=== PATIENT | female | born 1960 | race Caucasian/White ===

== ENCOUNTER → 2021-07-28 17:16 | Outpatient (CLI) | payer OTHER, MEDICAID, SELFPAY ==
--- NOTE | 2021-07-28 | DI.MRI.S_ITS ---
PROCEDURE: MR LUMBAR SPINE WO CON INDICATIONS: STENOISIS OF NEURAL CANAL TECHNIQUE: Noncontrast sagittal T1 spin echo and T2 fast echo, sagittal STIR, axial T1 and T2 fast spin echo through the lumbar spine. In cases with scoliosis, additional coronal T2 fast spin echo may be performed. COMPARISON: None. FINDINGS: Normal lumbar vertebral body height, alignment, and signal intensity. No suspicious focal marrow signal abnormality. Mild discogenic marrow edema at the posterior-superior L5 endplate (Modic type 1 degenerative change). Normal position and appearance of the conus. Prevertebral and paraspinous soft tissues demonstrate no acute finding. T12-L1: No spinal canal or neural foraminal stenosis. L1-L2: No spinal canal or neural foraminal stenosis. L2-L3: No spinal canal or neural foraminal stenosis. L3-L4: Disc bulge flattens the ventral thecal sac with mild displacement of the descending L4 nerve roots in both subarticular zones. Mild bilateral neural foraminal stenosis due to foraminal components of the disc bulge. L4-L5: Severe spinal canal stenosis due to a combination of diffuse disc bulge and a superimposed extrusion spanning the full lateral with of the spinal canal. The total volume of extruded disc material is at least 1.0 cm AP, 3.2 cm transverse, and 1.5 cm craniocaudal. There is mild migration of disc material below the level of the disc space. Extruded disc material significantly displaces numerous traversing nerve roots including the bilateral L5 nerve roots within both subarticular zones. There is complete effacement of CSF within the thecal sac. Laxity of the nerve roots above and below this level suggest compression. Foraminal components of the disc bulge and facet hypertrophy combine to produce moderate left and mild right neural foraminal stenosis. L5-S1: No spinal canal or neural foraminal stenosis. IMPRESSION: Severe spinal canal stenosis at L4-L5 with probable nerve root compression and impingement. Dictated by: Mo Damico M.D. on 07/29/2021 at 12:24 Approved by: Mo Damico M.D. on 07/29/2021 at 12:27
== END ==
PROVIDERS: PCP Internal Medicine; Referring Provider Internal Medicine; Visit Provider Internal Medicine
DX: M99.33 Osseous stenosis of neural canal of lumbar region (principal); M48.061 Spinal stenosis, lumbar region without neurogenic claudication
CPT/HCPCS: 72148

== ENCOUNTER 2022-04-27 11:52 | Emergency (ER) | payer OTHER, MEDICAID, SELFPAY ==
[2022-04-27 12:03] VITALS: BP 170/77; PULSE 85; RESP 14; TEMP 36.5; O2SAT 99; BMI 21.9
[2022-04-27 12:43] LABS: Add Manual Diff / Slide Review NO; Basophils Absolute Auto 100 /uL (0-100); Basophils Percent Auto 0.6 % (0-2); Eosinophils Absolute Auto 100 /uL (0-450); Eosinophils Percent Auto 0.7 % (2-4); Hematocrit 44.2 % (36-46); Hemoglobin 14.7 g/dL (12.0-16.0); Lymphocytes Absolute Auto 1900 /uL (1100-4500); Lymphocytes Percent Auto 16.2 % (25-40); Mean Corpuscular HGB Conc 33.3 % (30-36); Monocytes Absolute Auto 1000 /uL (0-900); Neutrophils Absolute Auto 8400 /uL (1500-7000); Neutrophils Percent Auto 73.5 % (50-75); Platelet Count 309 X10^3/uL (150-400); Red Blood Cell Count 4.92 X10^6/uL (4.0-5.2); Red Cell Distribution Width 13.5 % (11.6-14.8); White Blood Cell Count 11.5 X10^3/uL (4.5-11.0)
--- NOTE | 2022-04-27 12:46 | ED_ITS ---
HPI - Abdominal Pain General Chief Complaint: Abdominal Pain Stated Complaint: xtry of diverticulosis not getting better 10 days Time Seen by Provider: 04/27/22 12:31 Source: patient Mode of arrival: Ambulatory History of Present Illness HPI narrative: Patient is a 62-year-old female who presents to the ED complaining of abdominal pain. She was seen on April 16 in a previous ER for left lower quadrant abdominal pain. CT scan at that time showed evidence of diverticulitis patient was placed on Flagyl and Levaquin and she was having diarrhea stools frequently. She states that yesterday she started having more generalized abdominal pain more severe and more on the left epigastric and epigastric regions. She states the pain does tend to come and go and when it is it is quite intense. She is a history of diverticulitis that she states was diagnosed 30 years ago. She states the diverticulitis and diverticulosis has been part of her life off and on. She is learned to manage it and at times she does require antibiotic ther apy. She states that her diarrhea is still continuing she describes the stool to be soft stools with coffee-ground appearance. She also is complaining of some nausea she denies any vomiting. She is also complaining of some chills but denies any fever. She states the abdominal pain that is generalized is a sharp in nature and she said mostly it is tolerable but on occasion she will have severe abdominal pain. She is not able to read a number at this time. She is requesting some medication for nausea but she does not require any pain medication at this time. There has been no evidence of any recent trauma or fall. She denies any syncope. Related Data Home Medications Medication Instructions Recorded Confirmed MULTIVITAMIN (Multivitamin 0 PO * [place] DOSE/FREQUENCY ##0 06/21/08 -) Previous Rx's Medication Instructions Recorded amoxicillin 875 mg-potassium 1 tab PO BID 10 days #20 tabs 04/27/22 clavulanate 125 mg tablet ondansetron 4 mg disintegrating 4 mg PO Q6-8H PRN nausea and 04/27/22 tablet vomiting #7 tabs Allergies Allergy/AdvReac Type Severity Reaction Status Date / Time metformin Allergy Verified 04/27/22 12:03 Review of Systems Review of Systems ROS Unobtainable: All systems reviewed & are unremarkable except as noted in HPI and below Constitutional Constitutional: Denies chills, Denies fatigue, Denies fever(s), Denies frequent falls, Denies lethargy and Denies weakness Eyes Eyes: Denies change in vision, Denies eye discharge, Denies irritation and Denies loss of vision ENT Ears, Nose, Mouth, and Throat: Denies change in voice, Denies dizziness, Denies neck pain, Denies sore throat and Denies throat swelling Cardiovascular Cardiovascular: Denies chest pain, Denies irregular heart rhythm, Denies lightheadedness, Denies palpitations, Denies dyspnea, Denies dyspnea on exertion and Denies orthopnea Respiratory Respiratory: Denies cough, Denies dyspnea, Denies dyspnea on exertion and Denies wheezing Gastrointestinal Gastrointestinal: Reports abdominal pain, Reports change in bowel habits, Reports diarrhea, Reports nausea and Denies vomiting Genitourinary Genitourinary: Denies hematuria, Denies flank pain, Denies urinary incontinence and Denies urinary urgency Musculoskeletal Musculoskeletal: Denies back pain, Denies muscle weakness, Denies neck pain, Denies numbness and Denies tingling Integumentary/Breasts Skin/Breast: Denies pruritus, Denies erythema, Denies rash and Denies wounds Neurologic Neurologic: Denies behavioral changes, Denies confusion, Denies dizziness, Denies frequent falls, Denies loss of vision, Denies numbness, Denies tingling and Denies weakness Psychiatric Psychiatric: Denies anxiety, Denies behavioral changes, Denies confusion, Denies depression, Denies homicidal ideation and Denies suicidal ideation Endocrine Endocrine: Denies fatigue, Denies flushing and Denies palpitations Hematologic/Lymphatic Hematologic/Lymphatic: Denies easy bruising Allergic/Immunologic Allergic/Immunologic: Denies urticaria, Denies throat swelling and Denies wheezing Patient History Social History Smoking Status: Current every day smoker Smoking Status: Current every day smoker alcohol intake frequency: holidays/special occasions only Substance Use Type: does not use Exam Initial Vital Signs Initial Vital Signs: Vital Signs Temperature 97.7 F 04/27/22 12:03 Pulse Rate 85 04/27/22 12:03 Respiratory Rate 14 04/27/22 12:03 Blood Pressure 170/77 H 04/27/22 12:03 Pulse Oximetry 99 04/27/22 12:03 Oxygen Delivery Method 04/27/22 12:03 Const General: cooperative, healthy appearing, comfortable and well hydrated Orientation: Orientation [facility] Head: normal to inspection, normocephalic and atraumatic Ears: hearing grossly normal bilaterally and external ears normal Nose: external nose normal and nares normal Face and sinus: normal facial exam Mouth: oral mucosae normal Teeth and gingiva: dentition normal Eyes Pupils: PERRL Resp Effort & Inspection: normal respiratory effort and able to speak in complete sentences Auscultation: clear to auscultation bilaterally GI Inspection: normal to inspection Palpation: soft, no hepatosplenomegaly and tender (left upper quad) Percussion: normal to percussion Auscultation: hyperactive bowel sounds Skin General: no rashes or lesions noted Neuro General: patient alert, patient awake, patient oriented x3, moves all extremitie s and CN's II-XI intact bilaterally Course Orders Ordered: ED Orders 04/27/22 12:12 Complete Blood Count AUTO DIFF Stat Comprehensive Metabolic Panel Stat Lipase Stat Partial Thromboplastin Time Stat Prothrombin Time INR Stat 04/27/22 12:18 EKG-12 Lead Stat 04/27/22 12:35 Urine Microscopic Stat 04/27/22 13:05 CT abdomen pelvis w con Stat Discontinued Medications Ondansetron HCl (Ondansetron 4 Mg/2 Ml Inj) 4 mg IV NOW ONE Stop: 04/27/22 14:32 Vital Signs Vital signs: Vital Signs - 8 hr 04/27/22 12:03 Temperature 97.7 F Pulse Rate 85 Respiratory Rate 14 Blood Pressure 170/77 H Pulse Oximetry 99 Oxygen Delivery Method Room Air MDM - Abdominal Pain Lab Data Result diagrams: 04/27/22 12:12 04/27/22 12:12 Labs: Lab Results 04/27/22 04/27/22 04/27/22 Range/Units 12:12 12:12 12:12 WBC 11.5 H (4.5-11.0) X10^3/uL RBC 4.92 (4.0-5.2) X10^6/uL Hgb 14.7 (12.0-16.0) g/dL Hct 44.2 (36-46) % MCV 90.0 (80-100) fL MCH 30.0 (26-34) PG MCHC 33.3 (30-36) % RDW 13.5 (11.6-14.8) % Plt Count 309 (150-400) X10^3/uL Neut % (Auto) 73.5 (50-75) % Lymph % (Auto) 16.2 L (25-40) % [place] % (Auto) 9.0 (3-14) % Eos % (Auto) 0.7 L (2-4) % Baso % (Auto) 0.6 (0-2) % Neut # (Auto) 8400 H (0030-2332) /uL Lymph # (Auto) 1900 (1009-5868) /uL [place] # (Auto) 1000 H (0-900) /uL Eos # (Auto) 100 (0-450) /uL Baso # (Auto) 100 (0-100) /uL PT 13.1 H (10.1-12.7) SECONDS INR 1.1 (0.9-1.3) APTT 28 (26-36) SECONDS Sodium 136 L (137-145) mmol/L Potassium 4.1 (3.4-5.1) mmol/L Chloride 101 (98-107) mmol/L Carbon Dioxide 21 L (22-32) mmol/L BUN 11 (7-17) mg/dL Creatinine 0.49 L (0.52-1.04) mg/dL Estimated GFR > 60 (>60) mL/min BUN/Creatinine Ratio 22.4 H (6-22) Glucose 244 H (80-110) mg/dL Calcium 9.3 (8.4-10.2) mg/dL Total Bilirubin 0.8 (0.2-1.3) mg/dL AST 41 H (14-36) IU/L ALT 23 (<35) IU/L Alkaline Phosphatase 77 (38-126) U/L Total Protein 8.3 H (6.3-8.2) g/dL Albumin 4.6 (3.5-5.0) g/dL Globulin 3.7 (1.7-4.1) g/dL Albumin/Globulin Ratio 1.2 (1.0-2.8) Lipase 32 (23-300) U/L Urine RBC (0-5/HPF) Urine WBC (0-5/HPF) Ur Squamous Epith Cells (0-5/HPF) Ur Transition Epith Cell (0-5/HPF) Urine Bacteria (None) Ur Culture Indicated? 10/18/22 Range/Units 12:35 WBC (4.5-11.0) X10^3/uL RBC (4.0-5.2) X10^6/uL Hgb (12.0-16.0) g/dL Hct (36-46) % MCV (80-100) fL MCH (26-34) PG MCHC (30-36) % RDW (11.6-14.8) % Plt Count (150-400) X10^3/uL Neut % (Auto) (50-75) % Lymph % (Auto) (25-40) % [place] % (Auto) (3-14) % Eos % (Auto) (2-4) % Baso % (Auto) (0-2) % Neut # (Auto) (9925-8642) /uL Lymph # (Auto) (2068-5537) /uL [place] # (Auto) (0-900) /uL Eos # (Auto) (0-450) /uL Baso # (Auto) (0-100) /uL PT (10.1-12.7) SECONDS INR (0.9-1.3) APTT (26-36) SECONDS Sodium (137-145) mmol/L Potassium (3.4-5.1) mmol/L Chloride (98-107) mmol/L Carbon Dioxide (22-32) mmol/L BUN (7-17) mg/dL Creatinine (0.52-1.04) mg/dL Estimated GFR (>60) mL/min BUN/Creatinine Ratio (6-22) Glucose (80-110) mg/dL Calcium (8.4-10.2) mg/dL Total Bilirubin (0.2-1.3) mg/dL AST (14-36) IU/L ALT (<35) IU/L Alkaline Phosphatase (38-126) U/L Total Protein (6.3-8.2) g/dL Albumin (3.5-5.0) g/dL Globulin (1.7-4.1) g/dL Albumin/Globulin Ratio (1.0-2.8) Lipase (23-300) U/L Urine RBC None seen (0-5/HPF) Urine WBC None seen (0-5/HPF) Ur Squamous Epith Cells 1-5 /hpf (0-5/HPF) Ur Transition Epith Cell 0-1/hpf (0-5/HPF) Urine Bacteria None seen (None) Ur Culture Indicated? Cult not indicated Point of care testing: Urine Dip Bedside Urine Glucose 250 mg/dl Bedside Urine Bilirubin - Negative Bedside Urine Ketone - Negative Urine Specific [place] 1.010 Bedside Urine Occult Blood +/- Bedside Urine pH 6.0 Bedside Urine Protein - Negative Bedside Urine Urobilinogen - Negative Bedside Urine Nitrite - Negative Bedside Urine Leukocytes - Negative Esterase Imaging Data CT scan - abdomen/pelvis: Radiologist's Impression: [address] [address] [address] Scan Report Signed Patient: Viviana Conway MR#: [id number] : 1960 Acct:[id number] Age/Sex: 62 / F Date of Service: 04/27/22 Loc: ED Accession Number: [id number] ?? Procedure: CT abdomen pelvis w con Ordering Provider: Rudolph Landaverde P.A-C PROCEDURE:? CT ABDOMEN PELVIS W CON ? INDICATIONS:? H/O Diverticulitis, increased Abd pain ? TECHNIQUE:? After the administration of intravenous contrast, axial sections acquired from the lung bases to the pubic symphysis.? Coronal and sagittal reformats were performed.? For radiation dose reduction, the following was used:? automated exposure control, adjustment of mA and/or kV according to patient size.? ? COMPARISON:? CR, ABD/AP 1VW, 06/27/2014, 12:48. ? FINDINGS:? Image quality:? Excellent.? ? Lung bases:? Unremarkable. Heart:? No significant findings. ? ABDOMEN: Liver:? Mild, diffuse fatty infiltration of the liver. Gallbladder:? Unremarkable.? ? Biliary ducts:? Unremarkable.? ? Pancreas:? Unremarkable.? ? Spleen:? Unremarkable.? ? Adrenal Glands:? Unremarkable.? ? Kidneys and Ureters:? Unremarkable.? ? ? Stomach and Bowel:? Stomach, small bowel loops, and colon are unremarkable.? Multiple diverticuli noted in the colon.? Mild inflammatory changes noted adjacent to diverticuli in the distal left colon and in the sigmoid colon compatible with diverticu litis.? No bhavya-diverticular abscess.? Normal appendix.? Peritoneum:? No abnormal intraperitoneal fluid.? No free air.? ? Ventral Wall: ? Small fat containing umbilical hernia. Abdominal Nodes:? No retroperitoneal or mesenteric adenopathy by size criteria.? Vessels:? Aorta and inferior vena cava are normal in size. Scattered atherosclerotic calcifications involving the abdominal and pelvic vasculature. ? PELVIS: Pelvic Organs:? Uterus is absent. Bladder:? Unremarkable.? ? Pelvic Nodes: No enlarged lymph nodes.? Miscellaneous: No hernias are seen. ? ? ? Bones:? Spine degenerative disc disease and facet arthropathy. ? ? IMPRESSION:? ? Distal left colon and sigmoid colon diverticulitis. ? No abscess. ? No free fluid or free air.? Dictated by: Coral Ballesteros MD, PhD on 04/27/2022 at 13:17 ? ? Approved by: Coral Ballesteros MD, PhD on 04/27/2022 at 13:22?? MDM Narrative Medical decision making narrative: Patient was seen today for her abdominal pain. Her diverticulitis has been ongoing for the past 30 years of which she has made it quite manageable. The antibiotics that she was prescribed she has completed and with today's CT result shows showing continued evidence of diverticulitis I think it is feasible we can continue her antibiotics. I will refer her to her family medicine specialists for further evaluation and treatment. I did speak to her about possibly being admitted of which she would prefer to be discharged home. I think it is feasible and she is stable at this point that we can treat this outpatient. Prescriptions for antibiotics and anti nausea medications was sent to her pharmacy of record. She does have a small elevation in her CBC white cell count but I do not see any evidence of sepsis or any perforation from her diverticulitis.. I did tell her that if her symptoms were to become worse or she had increased pain that she could return to the ED for re-evaluation. Patient will be discharged home. Discharge Plan Departure Patient Disposition: Home Clinical Impression: Diverticulitis, Abdominal pain Instructions: DI for Diverticulitis Activity Restrictions/Additional Instructions: You were seen today for your abdominal pain. Your CT today does show evidence of diverticulitis within the left side of your colon. It does appear stable and I do not see any evidence of any perforation. If her symptoms become worse or you become more ill that you should return to the emergency room otherwise I would recommend that you follow-up with your regular doctor. I sent over Flagyl and ciprofloxacin to your pharmacy of choice as well as Zofran ODT for nausea. You can pick those prescriptions up at your convenience. If you start to have any concerns you can contact the ED or contact her PCP. Thank you for the opportunity to care for you today. Prescriptions: New amoxicillin-pot clavulanate 875-125 mg tablet 1 tab PO BID 10 Days Qty: 20 0RF ondansetron 4 mg tablet,disintegrating 4 mg PO Q6-8H PRN (Reason: nausea and vomiting) Qty: 7 0RF No Action MULTIVITAMIN (Multivitamin -) 0 PO * DOSE/FREQUENCY Qty: 0 Referrals: Benito Weldon MD [Primary Care Provider] -
[2022-04-27 12:59] LABS: INR 1.1 (0.9-1.3); Prothrombin Time 13.1 SECONDS (10.1-12.7)
[2022-04-27 13:02] LABS: PTT Partial Thromboplastin Tim 28 SECONDS (26-36)
--- NOTE | 2022-04-27 13:05 | DI.CT.S_ITS ---
PROCEDURE: CT ABDOMEN PELVIS W CON INDICATIONS: H/O Diverticulitis, increased Abd pain TECHNIQUE: After the administration of intravenous contrast, axial sections acquired from the lung bases to the pubic symphysis. Coronal and sagittal reformats were performed. For radiation dose reduction, the following was used: automated exposure control, adjustment of mA and/or kV according to patient size. COMPARISON: CR, ABD/AP 1VW, 06/27/2014, 12:48. FINDINGS: Image quality: Excellent. Lung bases: Unremarkable. Heart: No significant findings. ABDOMEN: Liver: Mild, diffuse fatty infiltration of the liver. Gallbladder: Unremarkable. Biliary ducts: Unremarkable. Pancreas: Unremarkable. Spleen: Unremarkable. Adrenal Glands: Unremarkable. Kidneys and Ureters: Unremarkable. Stomach and Bowel: Stomach, small bowel loops, and colon are unremarkable. Multiple diverticuli noted in the colon. Mild inflammatory changes noted adjacent to diverticuli in the distal left colon and in the sigmoid colon compatible with diverticulitis. No bhavya-diverticular abscess. Normal appendix. Peritoneum: No abnormal intraperitoneal fluid. No free air. Ventral Wall: Small fat containing umbilical hernia. Abdominal Nodes: No retroperitoneal or mesenteric adenopathy by size criteria. Vessels: Aorta and inferior vena cava are normal in size. Scattered atherosclerotic calcifications involving the abdominal and pelvic vasculature. PELVIS: Pelvic Organs: Uterus is absent. Bladder: Unremarkable. Pelvic Nodes: No enlarged lymph nodes. Miscellaneous: No hernias are seen. Bones: Spine degenerative disc disease and facet arthropathy. IMPRESSION: Distal left colon and sigmoid colon diverticulitis. No abscess. No free fluid or free air. Dictated by: Coral Ballesteros MD, PhD on 04/27/2022 at 13:17 Approved by: Coral Ballesteros MD, PhD on 04/27/2022 at 13:22
[2022-04-27 13:06] LABS: Alanine Aminotransferase 23 IU/L (<35); Albumin 4.6 g/dL (3.5-5.0); Albumin Globulin Ratio 1.2 (1.0-2.8); Alkaline Phosphatase 77 U/L (38-126); Aspartate Aminotransferase 41 IU/L (14-36); BUN Creatinine Ratio 22.4 (6-22); Bilirubin Total 0.8 mg/dL (0.2-1.3); Blood Urea Nitrogen 11 mg/dL (7-17); Calcium 9.3 mg/dL (8.4-10.2); Carbon Dioxide 21 mmol/L (22-32); Chloride 101 mmol/L (98-107); Estimated Glomerular Filt Rate > 60 mL/min (>60); Globulin 3.7 g/dL (1.7-4.1); Glucose 244 mg/dL (80-110); HEMOLYSIS 40 (0-50); Lipase 32 U/L (23-300); Potassium 4.1 mmol/L (3.4-5.1); Sodium 136 mmol/L (137-145); Total Protein 8.3 g/dL (6.3-8.2)
[2022-04-27 14:13] LABS: Bacteria Urine None Seen; Culture Indicated Urine Cult Not Indicated; RBC Urine None Seen (0-5/HPF); Squamous Epithelial Cell Urine 1-5 /HPF (0-5/HPF); Transitional Epi Cells Urine 0-1/HPF (0-5/HPF); WBC Urine None Seen (0-5/HPF)
[2022-04-27] MEDS: ONDANSETRON 4 MG/2 ML INJ IV (15:04)
[2022-04-27 15:16] VITALS: BP 155/71; PULSE 77; RESP 16; O2SAT 98
== END 2022-04-27 15:17 | disposition home or self-care (01) ==
PROVIDERS: Family Medicine Addiction Medicine; Emergency Provider Physician Assistant; PCP Internal Medicine
DX: K57.92 Diverticulitis of intestine, part unspecified, without perforation or abscess without bleeding (principal); R10.9 Unspecified abdominal pain; R19.7 Diarrhea, unspecified; R11.0 Nausea
CPT/HCPCS: 36415; 74177; 80053; 81003; 81015; 83690; 85025; 85610; 85730; 93005; 93010; 96374; 99284; J2405

== ENCOUNTER 2022-12-17 22:25 | Emergency (ER) | payer OTHER, MEDICAID, SELFPAY ==
[2022-12-17 22:28] VITALS: BP 198/91; PULSE 85; RESP 17; TEMP 37.1; O2SAT 99; BMI 22.3
[2022-12-17 23:04] LABS: Add Manual Diff / Slide Review NO; Basophils Absolute Auto 100 /uL (0-100); Basophils Percent Auto 0.8 % (0-2); Eosinophils Absolute Auto 500 /uL (0-450); Eosinophils Percent Auto 3.6 % (2-4); Hematocrit 38.4 % (36-46); Hemoglobin 13.3 g/dL (12.0-16.0); Lymphocytes Absolute Auto 1700 /uL (1100-4500); Lymphocytes Percent Auto 11.7 % (25-40); Mean Corpuscular HGB Conc 34.5 % (30-36); Mean Corpuscular Hemoglobin 30.8 PG (26-34); Mean Corpuscular Volume 89.2 fL (80-100); Monocytes Absolute Auto 1300 /uL (0-900); Monocytes Percent Auto 8.6 % (3-14); Neutrophils Absolute Auto 11200 /uL (1500-7000); Neutrophils Percent Auto 75.3 % (50-75); Platelet Count 270 X10^3/uL (150-400); Red Cell Distribution Width 13.8 % (11.6-14.8); White Blood Cell Count 14.9 X10^3/uL (4.5-11.0)
[2022-12-17 23:17] LABS: Alanine Aminotransferase 49 IU/L (<35); Albumin 4.3 g/dL (3.5-5.0); Albumin Globulin Ratio 1.3 (1.0-2.8); Alkaline Phosphatase 88 U/L (38-126); Aspartate Aminotransferase 24 IU/L (14-36); BUN Creatinine Ratio 33.3 (6-22); Bilirubin Total 0.9 mg/dL (0.2-1.3); Blood Urea Nitrogen 16 mg/dL (7-17); Calcium 9.3 mg/dL (8.4-10.2); Carbon Dioxide 26 mmol/L (22-32); Chloride 104 mmol/L (98-107); Estimated Glomerular Filt Rate > 60 mL/min (>60); Globulin 3.2 g/dL (1.7-4.1); Glucose 127 mg/dL (80-110); HEMOLYSIS 22 (0-50); Lipase 26 U/L (23-300); Potassium 3.9 mmol/L (3.4-5.1); Sodium 139 mmol/L (137-145); Total Protein 7.5 g/dL (6.3-8.2)
[2022-12-17 23:17] LABS: Bacteria Urine Few (2-10); Culture Indicated Urine Cult Not Indicated; RBC Urine 1-5/HPF (0-5/HPF); Squamous Epithelial Cell Urine 1-5 /HPF (0-5/HPF); WBC Urine None Seen (0-5/HPF)
[2022-12-18] VITALS (8 sets, daily range): BP systolic 159–184; BP diastolic 74–79; PULSE 69–80; RESP 16; TEMP 36.7; O2SAT 96–100
--- NOTE | 2022-12-18 00:28 | ED.GENADULT ---
HPI - General Adult General Chief complaint: Abdominal Pain Stated complaint: Stomach pain, Surgery last Dec. Time Seen by Provider: 12/18/22 00:28 Source: patient Mode of arrival: Ambulatory History of Present Illness HPI narrative: 62-year-old woman with history of prior diverticulitis presents with lower pelvic pain without fevers or vomiting but she does have nausea. She notes that she is had diarrhea and constipation plaguing her since partial sigmoid colectomy after prior diverticulitis episode. She was treated with Augmentin for a dental infection approximately 2 weeks ago which caused severe diarrhea. She is not complaining of cough, chest pain, palpitations, dyspnea, orthopnea or lower extremity edema Related Data Home Medications Medication Instructions Recorded Confirmed MULTIVITAMIN (Multivitamin 0 PO * UK DOSE/FREQUENCY ##0 06/21/08 -) Previous Rx's Medication Instructions Recorded ondansetron 4 mg disintegrating 4 mg PO Q6-8H PRN nausea and 04/27/22 tablet vomiting #7 tabs ciprofloxacin HCl 750 mg tablet 750 mg PO BID #14 tabs 12/18/22 hydrocodone 5 mg-acetaminophen 325 1 tab PO BEDTIME PRN pain #14 tabs 12/18/22 mg tablet metronidazole 500 mg tablet 500 mg PO BID #14 tabs 12/18/22 ondansetron 4 mg disintegrating 4 mg PO Q8H PRN nausea and 12/18/22 tablet vomiting #14 tabs Allergies Allergy/AdvReac Type Severity Reaction Status Date / Time metformin Allergy Verified 04/27/22 12:03 Review of Systems Review of Systems Narrative: Pertinent positive and negative findings as per HPI Patient History Medical History (Updated 12/18/22 @ 03:10 by Mirtha Be MD) Diverticulitis Surgical History (Updated 12/18/22 @ 03:10 by Mirtha Be MD) S/P partial colectomy Social History Smoking Status: Current every day smoker Smoking Status: Current every day smoker alcohol intake frequency: holidays/special occasions only Substance Use Type: does not use Exam Initial Vital Signs Initial Vital Signs: Vital Signs Temperature 98.8 F 12/17/22 22:28 Pulse Rate 85 12/17/22 22:28 Respiratory Rate 17 12/17/22 22:28 Blood Pressure 198/91 H 12/17/22 22:28 Pulse Oximetry 99 12/17/22 22:28 Oxygen Delivery Method Room Air 12/17/22 22:28 General: Healthy appearing, in no acute distress. Able to give a complete and coherent history. Well-nourished well-developed HEENT: Moist mucous membranes, normal sclera with reactive pupils, Respiratory: Lungs are clear to auscultation, no wheezing no rales no rhonchi. Full and symmetrical air movement Cardiac: Regular rate and rhythm no murmurs no bruits Abdomen: Soft, tender suprapubic extending into the left lower quadrant without rebound or guarding, good bowel tones, no flank pain Skin: Warm and dry, no rashes Neurologic: Grossly neurologically intact with no obvious asymmetries or abnormalities Extremities: No trauma, well perfused Psych: Cooperative, appropriate insight and affect Course Orders Ordered: ED Orders 12/17/22 22:45 Urine Microscopic Stat 12/17/22 22:55 Complete Blood Count AUTO DIFF Stat Comprehensive Metabolic Panel Stat Lipase Stat 12/18/22 00:36 CT abdomen pelvis w con Stat Hydromorphone HCl (Hydromorphone 0.5 Mg Inj) 0.5 mg IV Q15MIN PRN PRN Reason: Pain, Ondansetron HCl (Ondansetron 4 Mg Odt) 4 mg PO NOW PRN PRN Reason: Nausea And Vomiting Ondansetron HCl (Ondansetron 4 Mg/2 Ml Inj) 4 mg IV NOW PRN PRN Reason: Nausea And Vomiting Discontinued Medications Sodium Chloride (Normal Saline 0.9%) 1,000 mls @ 1,000 mls/hr IV BOLUS ONE Stop: 12/18/22 01:34 Last Infusion: 12/18/22 01:47 Dose: 0 mls/hr Documented By: Admin: 12/18/22 00:42 Dose: 1,000 mls/hr Documented By: AYAN Ondansetron HCl (Ondansetron 4 Mg/2 Ml Inj) 4 mg IV NOW ONE Stop: 12/18/22 00:36 Last Admin: 12/18/22 00:41 Dose: 4 mg Documented By: AYAN Vital Signs Vital signs: Vital Signs - 8 hr 12/17/22 22:28 12/18/22 00:42 Temperature 98.8 F Pulse Rate 85 72 Respiratory Rate 17 Blood Pressure 198/91 H Pulse Oximetry 99 96 Oxygen Delivery Method Room Air Medical Decision Making Lab Data 12/17/22 22:55 12/17/22 22:55 Labs: Lab Results 12/17/22 12/17/22 12/17/22 Range/Units 22:45 22:55 22:55 WBC 14.9 H (4.5-11.0) X10^3/uL RBC 4.30 (4.0-5.2) X10^6/uL Hgb 13.3 (12.0-16.0) g/dL Hct 38.4 (36-46) % MCV 89.2 (80-100) fL MCH 30.8 (26-34) PG MCHC 34.5 (30-36) % RDW 13.8 (11.6-14.8) % Plt Count 270 (150-400) X10^3/uL Neut % (Auto) 75.3 H (50-75) % Lymph % (Auto) 11.7 L (25-40) % Smyth % (Auto) 8.6 (3-14) % Eos % (Auto) 3.6 (2-4) % Baso % (Auto) 0.8 (0-2) % Neut # (Auto) 91387 H (7670-1160) /uL Lymph # (Auto) 1700 (3626-5854) /uL Smyth # (Auto) 1300 H (0-900) /uL Eos # (Auto) 500 H (0-450) /uL Baso # (Auto) 100 (0-100) /uL Sodium 139 (137-145) mmol/L Potassium 3.9 (3.4-5.1) mmol/L Chloride 104 (98-107) mmol/L Carbon Dioxide 26 (22-32) mmol/L BUN 16 (7-17) mg/dL Creatinine 0.48 L (0.52-1.04) mg/dL Estimated GFR > 60 (>60) mL/min BUN/Creatinine Ratio 33.3 H (6-22) Glucose 127 H (80-110) mg/dL Calcium 9.3 (8.4-10.2) mg/dL Total Bilirubin 0.9 (0.2-1.3) mg/dL AST 24 (14-36) IU/L ALT 49 H (<35) IU/L Alkaline Phosphatase 88 (38-126) U/L Total Protein 7.5 (6.3-8.2) g/dL Albumin 4.3 (3.5-5.0) g/dL Globulin 3.2 (1.7-4.1) g/dL Albumin/Globulin Ratio 1.3 (1.0-2.8) Lipase 26 (23-300) U/L Urine RBC 1-5/hpf (0-5/HPF) Urine WBC None seen (0-5/HPF) Ur Squamous Epith Cells 1-5 /hpf (0-5/HPF) Urine Bacteria Few (2-10) H (None) Ur Culture Indicated? Cult not indicated Urine Dip Bedside Urine Glucose Negative Bedside Urine Bilirubin - Negative Bedside Urine Ketone - Negative Urine Specific Vest 1.015 Bedside Urine Occult Blood +/- Bedside Urine pH 6 Bedside Urine Protein - Negative Bedside Urine Urobilinogen - Negative Bedside Urine Nitrite - Negative Bedside Urine Leukocytes - Negative Esterase Point of care testing: Urine Dip Bedside Urine Glucose Negative Bedside Urine Bilirubin - Negative Bedside Urine Ketone - Negative Urine Specific Vest 1.015 Bedside Urine Occult Blood +/- Bedside Urine pH 6 Bedside Urine Protein - Negative Bedside Urine Urobilinogen - Negative Bedside Urine Nitrite - Negative Bedside Urine Leukocytes - Negative Esterase MDM Narrative Medical decision making narrative: CC: Left lower quadrant abdominal pain, acute problem uncertain prognosis Complicating co-morbidities: Prior history of diverticulitis with prior partial colon resection Data collected from: patient, Medical records reviewed: No significant records are available for review Differential considered: Diverticulitis, diverticular abscess, bowel perforation, bowel obstruction Exam documented above, pertinent findings include: Moderate tenderness in the left lower quadrant and suprapubic area. Lab Test results independently reviewed as above. Pertinent findings: CBC shows mild leukocytosis with white count at 14.9 and 75.3% neutrophils Chemistries are reassuring without any significant liver abnormalities (mildly elevated ALT at 49) Lipase is unremarkable Imaging studies independently reviewed: CT scan of the abdomen and pelvis indicates diverticulitis in the sigmoid colon proximal to the colonic anastomosis with no evidence of abscess or microperforation no other significant findings are appreciated Treatments: Fluids, parenteral narcotics, oral narcotics and oral antibiotics (Cipro and Flagyl) Discussion: 62-year-old woman who presents with suprapubic pain and tenderness spreading over to the left lower quadrant. History of diverticular disease with partial sigmoid resection as a result of that. She notes that she had a dental appointment a couple of weeks ago was given what she believes is Augmentin and has significant diarrhea following that. That may have exacerbated current symptoms. Over the last 24 hours she is had significant increased pain. She describes no fevers. She has a chronic history of constipation and diarrhea that has continued. Labs do not suggest severe sepsis but CT scan does suggest developing diverticulitis. As she had adverse reactions to Augmentin less than 2 weeks ago will stick with Cipro and Flagyl for treatment for her. Findings reviewed with her, questions are answered at this point she is safe for discharge home. Discharge Plan Departure Patient Disposition: Home Clinical Impression: Diverticulitis Instructions: DI for Diverticulitis Activity Restrictions/Additional Instructions: Thank you for coming in today Your workup is actually quite reassuring. There is no evidence of acute sepsis, need for hospitalization or emergent surgery. Your CT scan does suggest your developing diverticulitis in the area just before the colon anastomosis. There is no evidence of abscess or perforation. I am going to send you home with prescriptions for ciprofloxacin and Flagyl please complete prescriptions for both. I have given you Zofran to help for nausea and Vicodin to help if pain is uncontrolled. Please remember that Vicodin is a narcotic, can be addictive and will cause constipation. You stated that you had MiraLax at home and you will need to use that to prevent constipation. Prescriptions were sent to [facility] pharmacy in [place] If you find that you are getting worse or develop any new symptoms, please feel free to return to the emergency department for further evaluation. Prescriptions: New ciprofloxacin HCl 750 mg tablet 750 mg PO BID Qty: 14 0RF metronidazole 500 mg tablet 500 mg PO BID Qty: 14 0RF ondansetron 4 mg tablet,disintegrating 4 mg PO Q8H PRN (Reason: nausea and vomiting) Qty: 14 0RF hydrocodone-acetaminophen 5-325 mg tablet 1 tab PO BEDTIME PRN (Reason: pain) Qty: 14 0RF No Action MULTIVITAMIN (Multivitamin -) 0 PO * UK DOSE/FREQUENCY Qty: 0 ondansetron 4 mg tablet,disintegrating 4 mg PO Q6-8H PRN (Reason: nausea and vomiting) Qty: 7 0RF Referrals: Benito Weldon MD [Primary Care Provider] - Stand Alone Forms: Patient Portal/API
--- NOTE | 2022-12-18 00:36 | DI.CT.S_ITS ---
PROCEDURE: CT ABDOMEN PELVIS W CON INDICATIONS: LLQ abdominal pain TECHNIQUE: After the administration of IV contrast, axial sections were acquired from the lung bases to the pubic symphysis. Coronal and sagittal reformats were performed. For radiation dose reduction, the following was used: automated exposure control, adjustment of mA and/or kV according to patient size. COMPARISON: [facility], CT, CT ABDOMEN PELVIS W CON, 04/27/2022, 13:05. FINDINGS: Image quality: Excellent. Lung bases: There is minimal dependent atelectasis. Heart: Heart is normal in size. ABDOMEN: Liver: No mass lesion. Gallbladder: Within normal limits without calcified gallstones. Biliary ducts: No biliary ductal dilatation. Pancreas: There is mild pancreatic duct dilatation, measuring up to 0.5 cm within the pancreatic head extending to the ampulla. No discrete mass or calcified obstructing stone identified. No peripancreatic fat stranding or fluid collections. Spleen: Normal in size. Adrenal Glands: No adrenal nodules. Kidneys and Ureters: No hydronephrosis. Stomach and Bowel: Stomach and small bowel loops are normal in caliber and wall thickness. The appendix is normal. There are sutures within the sigmoid colon in the left hemipelvis compatible with prior partial colonic resection. There is segmental colonic wall thickening in the sigmoid colon proximal to the anastomosis with associated diverticular wall thickening and mild pericolonic fat stranding. Findings are consistent with acute diverticulitis. Peritoneum: There is a small amount of intraperitoneal free fluid in the left abdomen. No free air. No abscess collection. Ventral Wall: No hernia. Abdominal Nodes: No retroperitoneal or mesenteric adenopathy by size criteria. Vessels: Aorta and inferior vena cava are normal in size. PELVIS: Pelvic Organs: Unremarkable. Bladder: Unremarkable. Pelvic Nodes: No enlarged lymph nodes. Miscellaneous: No inguinal hernias are seen. Bones: Visualized osseous structures demonstrate no suspicious focal lesions. IMPRESSION: 1. Diverticulitis in the sigmoid colon proximal to the colonic anastomosis without evidence of diverticular abscess or macroscopic free air. 2. Mild pancreatic duct dilatation, increased from the prior study, extending to the ampulla. Although no discrete mass or calcified stone is visualized on the current study, consider further evaluation with a contrast enhanced MRCP. Dictated by: Carlitos Valencia M.D. on 12/18/2022 at 1:06 Approved by: Carlitos Valencia M.D. on 12/18/2022 at 1:11
[2022-12-18] MEDS: ONDANSETRON 4 MG/2 ML INJ IV (00:41)
[2022-12-18] MEDS: SODIUM CHLORIDE 0.9% 1,000 ML 1000 ML IV (00:42)
[2022-12-18] MEDS: ONDANSETRON 4 MG ODT PREPACK 1 BOTTLE MISC (03:16)
[2022-12-18] MEDS: CIPROFLOXACIN 250 MG TABLET 750 MG PO (03:16)
[2022-12-18] MEDS: metroNIDAZOLE 500 MG TABLET PO (03:16)
[2022-12-18] MEDS: HYDROCODONE/ACET 5/325 PREPACK 1 BOTTLE MISC (03:16)
[2022-12-18] MEDS: HYDROCODONE/ACET 5/325 TABLET 1 TAB PO (03:18)
== END 2022-12-18 03:32 | disposition home or self-care (01) ==
PROVIDERS: Emergency Provider Emergency Medicine; PCP Internal Medicine
DX: K57.92 Diverticulitis of intestine, part unspecified, without perforation or abscess without bleeding (principal)
CPT/HCPCS: 36415; 74177; 80053; 81003; 81015; 83690; 85025; 96374; 99284; J2405; Q9967

== ENCOUNTER 2023-08-13 23:35 | Emergency (ER) | payer OTHER, MEDICAID, SELFPAY ==
[2023-08-13 23:42] VITALS: BP 193/82; PULSE 73; PULSE 80; RESP 18; TEMP 36.4; O2SAT 100; O2SAT 99; BMI 22.3
[2023-08-13 23:43] VITALS: BP 193/82; PULSE 80; O2SAT 100
[2023-08-14] VITALS: BP 183/77; PULSE 72; O2SAT 98
[2023-08-14 00:27] VITALS: BP 160/70; PULSE 70; O2SAT 98
[2023-08-14 00:29] VITALS: TEMP 36.6
[2023-08-14 00:30] VITALS: PULSE 72; O2SAT 98
[2023-08-14 00:31] VITALS: BP 176/75; PULSE 72
--- NOTE | 2023-08-14 00:32 | ED_ITS ---
HPI - Abdominal Pain General Chief Complaint: Abdominal Pain Stated Complaint: pain in left side like last time Diverticulitis Time Seen by Provider: 08/13/23 23:42 Source: patient Mode of arrival: Ambulatory History of Present Illness HPI narrative: Patient comes to the ED with 3 or 4 days of left lower quadrant pain. This pain is identical to previous episodes of diverticulitis that she has had. She had surgery for diverticulitis about a year ago but her last episode of acute diverticulitis was about 6 months ago. No recent change in medications. No fever, nausea but no vomiting. No back pain no dysuria. She has carotid sten osis and does still smoke cigarettes to degree. She also has diabetes. Related Data Home Medications Medication Instructions Recorded Confirmed MULTIVITAMIN (Multivitamin 0 PO * UK DOSE/FREQUENCY ##0 06/21/08 -) Previous Rx's Medication Instructions Recorded ondansetron 4 mg disintegrating 4 mg PO Q6-8H PRN nausea and 04/27/22 tablet vomiting #7 tabs ciprofloxacin HCl 750 mg tablet 750 mg PO BID #14 tabs 12/18/22 hydrocodone 5 mg-acetaminophen 325 1 tab PO BEDTIME PRN pain #14 tabs 12/18/22 mg tablet metronidazole 500 mg tablet 500 mg PO BID #14 tabs 12/18/22 ondansetron 4 mg disintegrating 4 mg PO Q8H PRN nausea and 12/18/22 tablet vomiting #14 tabs levofloxacin 750 mg tablet 750 mg PO DAILY #10 tabs 08/14/23 metronidazole 500 mg tablet 500 mg PO TID #30 tabs 08/14/23 Allergies Allergy/AdvReac Type Severity Reaction Status Date / Time metformin Allergy Verified 04/27/22 12:03 Patient History Medical History (Updated 08/14/23 @ 00:24 by Tim Gaspar MD) Diverticulitis Surgical History (Updated 12/18/22 @ 03:10 by Mirtha Be MD) S/P partial colectomy Social History Smoking Status: Current every day smoker Smoking Status: Current every day smoker alcohol intake frequency: holidays/special occasions only Substance Use Type: does not use Exam Initial Vital Signs Initial Vital Signs: Vital Signs Temperature 97.5 F L 08/13/23 23:42 Pulse Rate 73 08/13/23 23:42 Respiratory Rate 18 08/13/23 23:42 Blood Pressure 193/82 H 08/13/23 23:42 Pulse Oximetry 100 08/13/23 23:42 Oxygen Delivery Method Room Air 08/13/23 23:42 Course Orders Ordered: Discontinued Medications Levofloxacin (Levofloxacin 250 Mg Tablet) 750 mg PO NOW ONE Stop: 08/14/23 00:22 Metronidazole (Metronidazole 500 Mg Tablet) 500 mg PO NOW ONE Stop: 08/14/23 00:22 Vital Signs Vital signs: Vital Signs - 8 hr 08/13/23 23:42 08/14/23 00:29 Temperature 97.5 F L 97.8 F Pulse Rate 73 Respiratory Rate 18 Blood Pressure 193/82 H Pulse Oximetry 100 Oxygen Delivery Method Room Air MDM - Abdominal Pain MDM Narrative Medical decision making narrative: Patient says that she has diverticulitis based on her previous experience. She is not clinically ill. She has reassuring vital signs. She has no fever. She has a mildly tender abdomen with some mild guarding. I think symptomatic therapy and empiric antibiotics are appropriate in this setting. We had a detailed discussion about imaging and laboratory testing but she declines this at this time. She understands the need for prompt Re presentation if symptoms are worsening particularly with vomiting or worsening pain or fever. We also had a lengthy discussion about smoking cessation. Discharge Plan Departure Patient Disposition: Home Clinical Impression: Diverticulitis Instructions: DI for Diverticulitis Activity Restrictions/Additional Instructions: Take Levaquin daily and Flagyl 3 times a day. Ten days. For pain I recommend Tylenol 1000 mg taken together with ibuprofen 600 mg every 6 hours. Eat a very mild bland soft liquid diet for the 1st couple of days and then advance as tolerated. Return to the ED for worsening pain, fever, repeated vomiting. Good luck with your efforts to quit smoking this will be the single greatest thing you can do for your health. Start using the gum upon awakening and is many times during the day as you are inclined to smoke. Prescriptions: New levofloxacin 750 mg tablet 750 mg PO DAILY Qty: 10 0RF metronidazole 500 mg tablet 500 mg PO TID Qty: 30 0RF No Action MULTIVITAMIN (Multivitamin -) 0 PO * DOSE/FREQUENCY Qty: 0 ciprofloxacin HCl 750 mg tablet 750 mg PO BID Qty: 14 0RF metronidazole 500 mg tablet 500 mg PO BID Qty: 14 0RF ondansetron 4 mg tablet,disintegrating 4 mg PO Q8H PRN (Reason: nausea and vomiting) Qty: 14 0RF hydrocodone-acetaminophen 5-325 mg tablet 1 tab PO BEDTIME PRN (Reason: pain) Qty: 14 0RF ondansetron 4 mg tablet,disintegrating 4 mg PO Q6-8H PRN (Reason: nausea and vomiting) Qty: 7 0RF Referrals: Benito Weldon MD [Primary Care Provider] - Stand Alone Forms: Patient Portal/API
[2023-08-14] MEDS: metroNIDAZOLE 500 MG TABLET PO (00:34)
[2023-08-14] MEDS: levoFLOXacin 250 MG TABLET 750 MG PO (00:34)
== END 2023-08-14 00:36 | disposition home or self-care (01) ==
PROVIDERS: Emergency Provider Family Medicine Addiction Medicine; PCP Internal Medicine
DX: K57.92 Diverticulitis of intestine, part unspecified, without perforation or abscess without bleeding (principal)
CPT/HCPCS: 99283

== ENCOUNTER 2023-12-31 20:30 | Emergency (ER) | payer OTHER, MEDICAID, SELFPAY ==
[2023-12-31 20:35] VITALS: BP 189/81; PULSE 70; RESP 16; TEMP 36.8; O2SAT 98; BMI 22.8
--- NOTE | 2023-12-31 20:45 | ED.GENADULT ---
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 Patient states she has had prior issues in the past was treated with cephalexin and improved. She had a spot that is stayed kind of firm in the right groin for a long time and recently has started to enlarge and become more painful. Was seen yesterday at the walk-in clinic was started on an oral antibiotic did not have an I and D. she states pain has been increasing as well as swelling and redness in the area. No fevers. No other symptoms. She states it is becoming quite uncomfortable. She has had 5 or 6 doses of her cephalexin. She has been told to follow up with General surgery as it could possibly be her lymph nodes or possibly hidradenitis Related Data Home Medications Medication Instructions Recorded Confirmed MULTIVITAMIN (Multivitamin 0 PO * UK DOSE/FREQUENCY ##0 06/21/08 -) Previous Rx's Medication Instructions Recorded ondansetron 4 mg disintegrating 4 mg PO Q6-8H PRN nausea and 04/27/22 tablet vomiting #7 tabs ciprofloxacin HCl 750 mg tablet 750 mg PO BID #14 tabs 12/18/22 hydrocodone 5 mg-acetaminophen 325 1 tab PO BEDTIME PRN pain #14 tabs 12/18/22 mg tablet metronidazole 500 mg tablet 500 mg PO BID #14 tabs 12/18/22 ondansetron 4 mg disintegrating 4 mg PO Q8H PRN nausea and 12/18/22 tablet vomiting #14 tabs levofloxacin 750 mg tablet 750 mg PO DAILY #10 tabs 08/14/23 metronidazole 500 mg tablet 500 mg PO TID #30 tabs 08/14/23 clindamycin HCl 300 mg capsule 300 mg PO Q6H 7 days #28 caps 12/31/23 Allergies Allergy/AdvReac Type Severity Reaction Status Date / Time metformin Allergy Verified 12/31/23 20:51 Review of Systems Review of Systems ROS Unobtainable: All systems reviewed & are unremarkable except as noted in HPI and below Patient History Medical History Diverticulitis Surgical History S/P partial colectomy Social History Smoking Status: Current every day smoker Smoking Status: Current every day smoker alcohol intake frequency: holidays/special occasions only Substance Use Type: does not use Exam Narrative Exam Narrative: GENERAL: Alert and oriented x three, female in mild distress HEENT: Head normocephalic, atraumatic, EOMI, pupils reactive, face symmetric, moist mucous membranes NECK: Supple, full range of motion CARDIOVASCULAR: Regular rate and rhythm without murmurs, rubs or gallops. RESPIRATORY: Breath sounds equal bilaterally, no wheezes rales or rhonchi. ABDOMEN: Soft, nontender. Normoactive bowel sounds all 4 quadrants. No guarding or rebound, rigidity, no mass : No CVA tenderness. Patient has area of fluctuance and swelling that has approximately a cm half at the right medial inguinal crease within the pubic hair region, there is some cellulitis tracking about a cm to beyond. Area is tender, warm with erythema. EXTREMITIES: Normal range of motion, no clubbing or edema. Neurovascularly intact NEUROLOGICAL: Cranial nerves II through XII grossly intact. Moving all extremities SKIN: Warm, dry, no petechiae, no rashes or lesions. Initial Vital Signs Initial Vital Signs: Vital Signs Temperature 98.3 F 12/31/23 20:35 Pulse Rate 70 12/31/23 20:35 Respiratory Rate 16 12/31/23 20:35 Blood Pressure 189/81 H 12/31/23 20:35 Pulse Oximetry 98 12/31/23 20:35 Oxygen Delivery Method Room Air 12/31/23 20:35 Procedures Abscess I/D I&D #1: Site: other (right groin/pubic region) Side (if applicable): right Sedation/analgesia: none Local Anesthetic: lidocaine 2% Amount of anesthesia used (mL): 5 Technique: needle aspiration and incised with #11 blade Amount of fluid expressed (mL): 10 Irrigation: Yes Packing used?: iodoform Course Orders Ordered: ED Orders 12/31/23 21:13 Wound Culture and Gram Stain Stat Discontinued Medications Lidocaine HCl (Lidocaine 2% Inj Sdv 5ml) 5 ml INJ INTRA-OP ONE Stop: 12/31/23 20:54 Last Admin: 12/31/23 21:14 Dose: 5 ml Documented By: RACHEL Vital Signs Vital signs: Vital Signs - 8 hr 12/31/23 20:35 12/31/23 21:27 Temperature 98.3 F Pulse Rate 70 68 Respiratory Rate 16 16 Blood Pressure 189/81 H 175/78 H Pulse Oximetry 98 99 Oxygen Delivery Method Room Air Room Air Medical Decision Making MDM Narrative Medical decision making narrative: This is a 63-year-old female with complaint of abscess in her right groin. She has had them in the past. Was seen yesterday at walk-in clinic started on cephalexin but did not have I and D. That is quite fluctuant soft with some surrounding cellulitis. Patient had I&D with purulent drainage. Culture was sent. Patient tolerated procedure well. Discussed with patient would change her antibiotic at this time. Discussed return precautions. Discharge Plan Departure Patient Disposition: Home Clinical Impression: Abscess of skin or subcutaneous tissue Instructions: DI for Skin Abscess Activity Restrictions/Additional Instructions: Follow up for recheck in the next several days to make sure your abscesses resolving. Start your new antibiotic. You may stop your cephalexin. Prescription was sent to [facility] in [place]. You can take Tylenol up to a 1000 mg every 6 hours and/or ibuprofen up to 600 mg every 6 hours. Wound Care: Keep wound(s) clean and dry. Wash daily with soap and water only. Use warm compresses or Sitz baths 3-4 times daily. Do not use over the counter products (alcohol or peroxide)on the wounds unless instructed by a physician. If wound condition worsens (increased/expanding redness, developing fluid blisters, or worsening pain), either contact your doctor for an urgent re-assessment , or return to the Emergency Department. Return if fever greater than 100.4 Fahrenheit, increased swelling, increasing pain or worsening symptoms such as increased discharge or spreading redness. Prescriptions: New clindamycin HCl 300 mg capsule 300 mg PO Q6H 7 Days Qty: 28 0RF No Action MULTIVITAMIN (Multivitamin -) 0 PO * DOSE/FREQUENCY Qty: 0 ciprofloxacin HCl 750 mg tablet 750 mg PO BID Qty: 14 0RF metronidazole 500 mg tablet 500 mg PO BID Qty: 14 0RF ondansetron 4 mg tablet,disintegrating 4 mg PO Q8H PRN (Reason: nausea and vomiting) Qty: 14 0RF hydrocodone-acetaminophen 5-325 mg tablet 1 tab PO BEDTIME PRN (Reason: pain) Qty: 14 0RF levofloxacin 750 mg tablet 750 mg PO DAILY Qty: 10 0RF metronidazole 500 mg tablet 500 mg PO TID Qty: 30 0RF ondansetron 4 mg tablet,disintegrating 4 mg PO Q6-8H PRN (Reason: nausea and vomiting) Qty: 7 0RF Referrals: Benito Weldon MD [Primary Care Provider] - Stand Alone Forms: Patient Portal/API
[2023-12-31] MEDS: LIDOCAINE 2% INJ SDV 5ML 5 ML INJ (21:14)
[2023-12-31 21:27] VITALS: BP 175/78; PULSE 68; RESP 16; O2SAT 99
== END 2023-12-31 21:25 | disposition home or self-care (01) ==
PROVIDERS: Emergency Provider Emergency Medicine; PCP Internal Medicine
DX: L02.214 Cutaneous abscess of groin (principal)
CPT/HCPCS: 10060; 87070; 87075; 87077; 87186; 87205; 99283